=== PATIENT | female | born 1960 | race Caucasian/White ===

== ENCOUNTER → 2016-11-30 | Outpatient (CLI) | payer OTHER, MEDICAID ==
[~2016-11-30] MED LIST: CALCIUM CARBON600 MG PO; LEVAQUIN 750 M750 MG PO; LEVOTHROID (S100 MCG PO; LOPRESSOR25 MG PO; LYRICA 75MG CAP75 MG PO; MOBIC15 MG PO; MOBIC7.5 MG PO; NORCO 5-325 MG1 TAB PO; PROBIOTIC1 EAC2 PO; SYNTHROID112 MCG PO
== END | disposition disaster alternative care site (69) ==
LOC: GRAD 10:34
DX: H90.2 Conductive hearing loss, unspecified (principal); Z86.018 Personal history of other benign neoplasm; H83.8X2 Other specified diseases of left inner ear

== ENCOUNTER → 2016-12-17 | Outpatient (CLI) | payer OTHER, MEDICAID | END | disposition disaster alternative care site (69) | LOC: GRAD 09:43 | DX: D33.3 Benign neoplasm of cranial nerves (principal); Z98.890 Other specified postprocedural states | CPT/HCPCS: A9577 ==